=== PATIENT | male | born 1975 | race Caucasian/White ===

== ENCOUNTER 2019-11-28 06:42 | Emergency (ER) | payer BC, SELFPAY ==
[~2019-11-28] VITALS: Ht 175.3 cm; Wt 108.0 kg
[2019-11-28 06:43] VITALS: Ht 175.3 cm; Wt 108.0 kg
[2019-11-28 09:33] VITALS: BP 132/75
== END 2019-11-28 09:33 | disposition home or self-care (01) ==
LOC: ED 06:42
DX: U07.1 COVID-19 (principal); E11.9 Type 2 diabetes mellitus without complications; I10 Essential (primary) hypertension; E66.8 Other obesity; Z68.35 Body mass index [BMI] 35.0-35.9, adult; Z90.89 Acquired absence of other organs
CPT/HCPCS: 82962; Q0092; U0003-CS

== ENCOUNTER 2019-12-11 12:17 | Emergency (ER) | payer BC, SELFPAY ==
[~2019-12-11] VITALS: Ht 175.3 cm; Wt 108.9 kg
[2019-12-11 12:18] VITALS: Ht 175.3 cm; Wt 108.9 kg
[2019-12-11 14:05] VITALS: BP 138/79
== END 2019-12-11 14:05 | disposition home or self-care (01) ==
LOC: ED 12:17
DX: U07.1 COVID-19 (principal); I10 Essential (primary) hypertension; E11.9 Type 2 diabetes mellitus without complications; Z90.89 Acquired absence of other organs
CPT/HCPCS: U0003-CS

== ENCOUNTER 2019-12-16 02:46 | Emergency (ER) | payer BC ==
[~2019-12-16] VITALS: Ht 175.3 cm; Wt 108.9 kg
[2019-12-16 03:14] VITALS: Ht 175.3 cm; Wt 108.9 kg
[2019-12-16 04:36] LABS: microscopic required? NO
[2019-12-16 04:42] LABS: urine erythrocyte NEGATIVE (NEGATIVE)
[2019-12-16 04:43] LABS: BASOPHIL % 0.3 % (0-2); PLATELET COUNT 311 x10^3mcL (130-400); RED CELL DISTRIBUTION WIDTH 13.5 % (11.5-14.5)
[2019-12-16 05:24] LABS: CALCIUM 9.1 mg/dL (8.5-10.1); CARBON DIOXIDE 25.7 mmol/L (21-32); CHLORIDE SERUM 98 mmol/L (98-107); CREATININE SERUM 0.9 mg/dL (0.7-1.3); GFR1 > 60 mL/min; GLUCOSE SERUM 419 mg/dL (74-106); POTASSIUM SERUM 3.7 mmol/L (3.5-5.1); SODIUM SERUM 134 mmol/L (136-145)
[2019-12-16 05:28] LABS: ALBUMIN 3.9 g/dL (3.4-5.0); ALKALINE PHOSPHATASE 108 U/L (46-116); ALT/SGPT 89 U/L (16-63); AST/SGOT 43 U/L (15-37); BILIRUBIN TOTAL 0.58 mg/dL (0.20-1.00); C REACTIVE PROTEIN 0.4 mg/dL (<=0.9); LACTIC DEHYDROGENASE (LDH) 248 U/L (100-190); TOTAL PROTEIN, SERUM 8.3 g/dL (6.4-8.2)
[2019-12-16 06:49] VITALS: BP 112/56
== END 2019-12-16 06:50 | disposition home or self-care (01) ==
LOC: ED 02:46
PROVIDERS: Emergency Medicine
DX: M54.9 Dorsalgia, unspecified (principal); I10 Essential (primary) hypertension; E11.9 Type 2 diabetes mellitus without complications; Z20.828 Contact with and (suspected) exposure to other viral communicable diseases
CPT/HCPCS: 83880; 85378; Q0092